=== PATIENT | male | born 1970 | race Caucasian/White ===

== ENCOUNTER 2019-08-17 02:52 | Emergency (ER) | payer OTHER ==
[2019-08-17 03:11] VITALS: TEMP 97.9
--- NOTE | 2019-08-17 03:14 | RAD ---
CHEST 1 VIEW on 08/17/2019 CLINICAL INDICATION: Chest pain, difficulty breathing COMPARISON: None FINDINGS: The lungs are clear. Cardiac, hilar and mediastinal contours are within normal limits. Pulmonary vascularity is within normal limits. No bony abnormality is noted. IMPRESSION: No active disease. Electronically signed by: Clemente Monk 08/17/2019 3:13 AM CDT
[2019-08-17] MEDS ORDERED: SODIUM CHLORIDE 0.9% (FLUSH) 10 ML SYG IV PRN (03:17)
[2019-08-17] MEDS ORDERED: methylPREDNISolone SODIUM SUC 125 MG/2 ML VIAL IV ONE (03:17)
[2019-08-17] MEDS ORDERED: FAMOTIDINE IV PREMIX 20 MG in PREMIX BAG 1 BAG IVPB ONE (03:17)
[2019-08-17] MEDS ORDERED: diphenhydrAMINE HCL 50 MG/ML VIAL IV ONE (03:17)
--- NOTE | 2019-08-17 03:18 | ED.PDOC ---
History of Present Illness - General Chief Complaint: General Stated Complaint: nausea, chest tightness, possible reaction Time Seen by Provider: 08/17/19 03:09 Source: patient Exam Limitations: no limitations - History of Present Illness Initial Comments: ALLERGIC RXN HRS [employer]. PT ATE AT [employer]. AROUND 10 PM STARTED HAVING CHEST TIGHTNESS. HAD SIMILAR RXN IN PAST TO SHELLFISH (ALLERGIC TO IT). PT THINKS MIGHT HAVE BEEN SHRIMP COOKED WITH IT. MILD DYSPNEA, JUST FROM THE CHEST TIGHTNESS. Timing/Duration: 4-6 hours Severity: moderate Worsening Factors: nothing Associated Symptoms: other - CHEST TIGHTNESS Allergies/Adverse Reactions: Allergies Shellfish Allergy Allergy (Verified 08/17/19 02:57) Home Medications: Ambulatory Orders Methylprednisolone [Medrol Dose Rashad] 4 mg PO DAILY #1 tab 08/17/19 Methylprednisolone [Medrol Dose Rashad] 4 mg PO DAILY #1 tab 08/17/19 Review of Systems - Review of Systems Constitutional: Denies: chills, fever EENTM: Denies: ear pain, nose congestion, throat pain, throat swelling, mouth pain, mouth swelling Respiratory: Denies: cough, short of breath, stridor, wheezing Cardiology: States: other - CHEST TIGHTNESS. Denies: palpitations Gastrointestinal/Abdominal: Denies: abdominal pain, nausea Genitourinary: Denies: dysuria, frequency Musculoskeletal: Denies: back pain, joint pain, joint swelling, muscle stiffness, neck pain Skin: States: other - SKIN FEELS A LITTLE CLAMMY.. Denies: change in color Neurological: Denies: tingling, weakness Endocrine: Denies: flushing, increased thirst, increased urine, unexplained weight gain, unexplained weight loss Hematologic/Lymphatic: Denies: easy bleeding, easy bruising All other Systems: Reviewed and Negative Past Medical History (General) - Patient Medical History Hx Asthma: No Hx Cardiac Disorders: No Hx Hypertension: No Hx Diabetes: No Hx Gastroesophageal Reflux: No Surgical History: no surgical history - Vaccination History Hx Tetanus, Diphtheria Vaccination: No Hx Influenza Vaccination: No Hx Pneumococcal Vaccination: No - Social History Hx Tobacco Use: No Hx Alcohol Use: No Family Medical History - Family History Father Family History: Unknown Living Status: Still Living Physical Exam - Physical Exam General Appearance: Alert, Other - UNCOMFORTABLE Eye Exam: bilateral normal Ears, Nose, Throat: hearing grossly normal, normal ENT inspection, normal pharynx - NO EDEMA. , abnormal TM (R) Neck: non-tender, full range of motion, supple - NO LAD. NO EDEMA. , normal inspection Respiratory: chest non-tender, lungs clear, normal breath sounds - NO WHEEZES. , no respiratory distress, no accessory muscle use Cardiovascular/Chest: normal peripheral pulses, no edema, no gallop, no JVD, no murmur, bradycardia - BUT REGULAR RHYTHM Peripheral Pulses: radial,right: 2+, radial,left: 2+, dorsalis pedis,right: 2+, dorsalis pedis,left: 2+, posterior tibialis,right: 2+, posterior tibialis,left: 2+ Gastrointestinal/Abdominal: normal bowel sounds, non tender, soft, no organomegaly, no pulsatile mass Back Exam: normal inspection Extremity: normal range of motion, normal inspection, no pedal edema, no calf tenderness Neurologic: bordereau clerk II-XII nml as tested, no motor/sensory deficits, alert, normal mood/affect, oriented x 3 Skin Exam: normal color, other - WARM. JUST SLIGHT DIAPHORESIS TO TOUCH, BUT NOT VISIBLY. Lymphatic: no adenopathy Progress - Progress Progress: 08/17/19 03:32 ALLERGIC RXN (CHEST TIGHTNESS, SKIN DIAPHORETIC, SX IDENTICAL TO PREVIOUS SHELLFISH REACTION) - GAVE SOLUMEDROL, PEPCID, BENADRYL. EPINEPHRINE NOT INDICATED, PT IS NOT IN ANAPHYLAXIS AND THE EPINEPHRINE RISKS OUTWEIGH THE BENEFITS SINCE HIS RESPIRATORY STATUS IS NOT COMPROMISED. CHEST TIGHTNESS BUT DENIES SOB. NO HYPOTENSION, NO HYPOXIA, NO TACHYPNEA, NO TACHYCARDIA. HE IS HEMODYNAMICALLY STABLE. FOR COMPLETENESS, I OBTAINED DIAGNOSTICS TO ENSURE IT IS NOT CARDIOPULMONARY - CXR CLEAR. EKG SINUS BRADYCARDIA. TROPONIN PENDING. GAVE MORPHINE TO EASE THE CHEST TIGHTNESS. ONCE TROP RETURNS AND HE FEELS BETTER, HE IS SAFE FOR DC ON MEDROL DOSE PACK AND BENADRYL. 08/17/19 03:47 TROP NEG. SAFE FOR DC TO HOME PER ABOVE. - EKG/XRAY/CT EKG: [place], Sinus, no ST T wave changes Departure - Departure Clinical Impression: Feeling of chest tightness Allergic reaction to food Qualifiers: Encounter type: initial encounter Qualified Code(s): T78.1XXA - Other adverse food reactions, not elsewhere classified, initial encounter Disposition: Discharge to Home or Self Care Condition: Good Departure Forms: ED Discharge - Pt. Copy, Patient Portal Self Enrollment Instructions: Allergy to Shellfish Diet: resume usual diet Activity: increase activity as tolerated Prescriptions: Methylprednisolone [Medrol Dose Rashad] 4 mg PO DAILY #1 tab Methylprednisolone [Medrol Dose Rashad] 4 mg PO DAILY #1 tab Home Medications: Ambulatory Orders Methylprednisolone [Medrol Dose Rashad] 4 mg PO DAILY #1 tab 08/17/19 Methylprednisolone [Medrol Dose Rashad] 4 mg PO DAILY #1 tab 08/17/19 Additional Instructions: Please add "shellfish" to your future medical lists of allergies. Please clear with a restaurant there is no shellfish in the dish or preparation. Please complete the course of steroids so your symptoms don't return. Continue taking Benadryl 50 mg (2 tablets) every 6 hours until your symptoms are no longer returning. Please return to the ER if any of your symptoms return or worsen, such as trouble breathing.
[2019-08-17] MEDS ORDERED: MORPHINE SULFATE INJ 10 MG/ML VIAL IV ONE (03:19)
[2019-08-17 03:57] VITALS: BP 148/95; O2SAT 97
== END 2019-08-17 04:03 | disposition home or self-care (01) ==
LOC: ER 02:52
DX: R07.89 Other chest pain (principal); T78.1XXA Other adverse food reactions, not elsewhere classified, initial encounter; R11.0 Nausea; Y92.9 Unspecified place or not applicable
CPT/HCPCS: 71045; 84484; 93005; A4216; J1200; J2270; J2930; J3490